=== PATIENT | female | born 1990 | race Native Hawaiian/Other Pacific Islander ===

== ENCOUNTER 2020-08-11 08:48 | Emergency (ER) | payer OTHER ==
[~2020-08-11] VITALS: Ht 160 cm; Wt 115.7 kg
[2020-08-11 08:53] VITALS: BP 134/86; TEMP 96.9
== END 2020-08-11 11:08 | disposition home or self-care (01) ==
LOC: ED 08:48
DX: S20.211A Contusion of right front wall of thorax, initial encounter (principal); Y04.2XXA Assault by strike against or bumped into by another person, initial encounter; Y93.F9 Activity, other caregiving; Y92.238 Other place in hospital as the place of occurrence of the external cause
CPT/HCPCS: 99283

== ENCOUNTER 2020-11-29 09:20 | Emergency (ER) | payer OTHER ==
[~2020-11-29] VITALS: Ht 160 cm; Wt 115.7 kg
[2020-11-29 09:31] VITALS: BP 132/84; TEMP 98.4
== END 2020-11-29 10:15 | disposition home or self-care (01) ==
LOC: ED 09:20
DX: K08.89 Other specified disorders of teeth and supporting structures (principal)
CPT/HCPCS: 96372; 99282; J1885

== ENCOUNTER 2021-01-27 06:53 | Emergency (ER) | payer OTHER ==
[~2021-01-27] VITALS: Ht 160 cm; Wt 115.7 kg
[2021-01-27 07:00] VITALS: BP 152/90; TEMP 97.7
== END 2021-01-27 07:56 | disposition home or self-care (01) ==
LOC: ED 06:53
DX: K08.89 Other specified disorders of teeth and supporting structures (principal); K02.9 Dental caries, unspecified
CPT/HCPCS: 96372; 99283; J0696; J1885

== ENCOUNTER 2021-02-20 16:18 | Emergency (ER) | payer OTHER ==
[~2021-02-20] VITALS: Ht 160 cm; Wt 115.7 kg
[2021-02-20 19:06] VITALS: BP 146/79; TEMP 98.9
== END 2021-02-20 19:08 | disposition home or self-care (01) ==
LOC: ED 16:18
DX: S60.222A Contusion of left hand, initial encounter (principal); S40.022A Contusion of left upper arm, initial encounter; S00.83XA Contusion of other part of head, initial encounter; Y04.2XXA Assault by strike against or bumped into by another person, initial encounter; Y92.238 Other place in hospital as the place of occurrence of the external cause
CPT/HCPCS: 99282